=== PATIENT | female | born 1940 | race Caucasian/White ===

== ENCOUNTER 2020-08-06 12:07 | Emergency (ER) | payer MEDICARE ==
[2020-08-06 12:50] VITALS: BP 130/57
--- NOTE | 2020-08-06 14:17 | Event Note ---
ED Screening Note Date of service: 08/06/20 Time: 14:09 ED Screening Note: 79-year-old female patient with history of diabetes, hypertension, and end-stage renal disease on dialysis presents to the emergency department with complaints of progressively worsening right-sided headache for several months. Patient states she feels like "her scalp is burning." Patient attends dialysis Thursday/Thursday/Thursday. She did go to dialysis earlier today. No history of head trauma. General: Awake, appropriately interactive, no acute distress. ENT: Normal otoscopic exam. Neck: Supple. Full range of motion intact. Cardiovascular: Normal peripheral perfusion. Pulmonary: No respiratory distress. Patient is speaking normally without use of accessory muscles. Skin: No apparent rashes or lesions. Neurological: No facial asymmetry. Speech is clear. Follows commands. Patient is alert and oriented. Musculoskeletal: Moves all four extremities spontaneously with normal range of motion. Psych: Cooperative. Appropriate mood and affect. I have greeted and performed a focused rapid initial assessment of this patient. A comprehensive ED assessment and evaluation of the patient, analysis of all test results, and completion of the medical decision-making process will be conducted by additional ED providers. This initial assessment/diagnostic orders/clinical plan/treatment(s) is/are subject to change based on patients health status, clinical progression and re-assessment. Further treatment and workup at subsequent clinical provider's discretion. Patient/guardian urged not to elope from the ED as their condition may be serious if not clinically assessed and managed.
== END 2020-08-06 19:00 | disposition left against medical advice (07) ==
LOC: ED 12:07
DX: H92.01 Otalgia, right ear (principal); Z53.21 Procedure and treatment not carried out due to patient leaving prior to being seen by health care provider

== ENCOUNTER 2020-08-25 07:50 | Emergency (ER) | payer MEDICARE ==
--- NOTE | 2020-08-25 08:30 | Event Note ---
ED Screening Note Date of service: 08/25/20 Time: 08:29 ED Screening Note: This 79-year-old female with end-stage renal disease on dialysis 3 times a day last dialyzed yesterday presents to ED complaining of generalized body aches, coughing and bilateral leg pain times couple of days. This initial assessment/diagnostic orders/clinical plan/treatment(s) is/are subject to change based on patients health status, clinical progression and re- assessment by fellow clinical providers in the ED. Further treatment and workup at subsequent clinical providers discretion. Patient/guardian urged not to elope from the ED as their condition may be serious if not clinically assessed and managed. Initial orders include: Labs, chest x-ray.
--- NOTE | 2020-08-25 09:01 | XRay Report ---
CHEST 2 VIEWS INDICATION / CLINICAL INFORMATION: cough. COMPARISON: None available. FINDINGS: SUPPORT DEVICES: None. HEART / MEDIASTINUM: No significant abnormality. LUNGS / PLEURA: No significant pulmonary or pleural abnormality. No pneumothorax. ADDITIONAL FINDINGS: There are some likely venous vascular stents in the chest. IMPRESSION: 1. No acute findings. Signer Name: Gato Hardin MD Signed: 08/25/2020 8:56 AM Workstation Name: [id number]
[2020-08-25 09:52] VITALS: BP 124/78
[2020-08-25 10:05] LABS: Hematocrit 39.1 % (30.3-42.9); Hemoglobin 12.3 gm/dl (10.1-14.3); Mean Corpuscular HGB Conc 32 % (30-34); Mean Corpuscular Volume 88 fl (79-97); Platelet Count 165 K/mm3 (140-440); Red Blood Count 4.42 M/mm3 (3.65-5.03); Red Cell Distribution Width 17.3 % (13.2-15.2)
[2020-08-25 10:32] LABS: Albumin 3.6 g/dL (3.9-5); Calcium 9.3 mg/dL (8.4-10.2)
--- NOTE | 2020-08-25 11:07 | Emergency Department Report ---
ED General Adult HPI - General Chief complaint: Pain General Stated complaint: BODY PAIN Time Seen by Provider: 08/25/20 09:31 Source: patient Mode of arrival: Ambulatory Limitations: No Limitations - History of Present Illness Initial comments: Chief complaint: My whole body hurts. HPI: This is a 79-year-old female with history of hypertension, end-stage renal disease on hemodialysis for the past 15 years. She presents with diffuse body aches 2 days after receiving second dose of COVID-19 vaccine. She did not have any side effects with the first dose. She has chills cough body aches generalized fatigue. Last hemodialysis on yesterday. -: Gradual, days(s) (Past 3 days, 2 days after receiving COVID-19 vaccine) Location: head, neck, left, right, upper extremity, lower extremity Quality: aching Consistency: constant Improves with: medication (Tylenol) Worsens with: none Associated Symptoms: cough, fever/chills (Chills), malaise - Related Data Previous Rx's Medication Instructions Recorded Last Taken Type traMADoL [Ultram 50 MG tab] 50 mg PO Q6HR PRN #15 tablet 08/25/20 Unknown Rx Allergies Allergy/AdvReac Type Severity Reaction Status Date / Time No Known Allergies Allergy Unverified 08/25/20 08:02 ED Review of Systems ROS: Stated complaint: BODY PAIN Other details as noted in HPI Comment: All other systems reviewed and negative Constitutional: chills, malaise. denies: fever Respiratory: cough Gastrointestinal: denies: abdominal pain, nausea, vomiting Musculoskeletal: myalgia ED Past Medical Hx - Past Medical History Previous Medical History?: Yes Hx Hypertension: Yes Hx Renal Disease: Yes (Dialysis pt) - Surgical History Past Surgical History?: Yes Additional Surgical History: Hysterectomy - Social History Smoking Status: Never Smoker Substance Use Type: None - Medications Home Medications: Home Medications Medication Instructions Recorded Confirmed Last Taken Type traMADoL [Ultram 50 MG tab] 50 mg PO Q6HR PRN #15 tablet 08/25/20 Unknown Rx ED Physical Exam - General Limitations: No Limitations General appearance: alert, in no apparent distress, other (Appears well appears comfortable nontoxic-appearing) - Head Head exam: Present: atraumatic, normocephalic - Eye Eye exam: Present: normal appearance - ENT ENT exam: Present: mucous membranes moist - Neck Neck exam: Present: normal inspection, full ROM - Respiratory Respiratory exam: Present: normal lung sounds bilaterally. Absent: respiratory distress, wheezes, rales, rhonchi - Cardiovascular Cardiovascular Exam: Present: regular rate, normal rhythm, normal heart sounds. Absent: systolic murmur, diastolic murmur, rubs, gallop - GI/Abdominal GI/Abdominal exam: Present: soft, normal bowel sounds. Absent: distended, tenderness, guarding, rebound - Extremities Exam Extremities exam: Present: normal inspection - Neurological Exam Neurological exam: Present: alert, oriented X3 - Psychiatric Psychiatric exam: Present: normal affect, normal mood - Skin Skin exam: Present: warm, dry, intact, normal color. Absent: rash ED Course Vital Signs 08/25/20 08/25/20 07:57 09:49 Temperature 98.5 F Pulse Rate 98 H 88 Respiratory 12 18 Rate Blood Pressure 125/62 Blood Pressure 124/78 [Left] O2 Sat by Pulse 97 98 Oximetry ED Medical Decision Making - Lab Data Result diagrams: 08/25/20 09:15 08/25/20 09:15 Laboratory Results - last 24 hr 08/25/20 08/25/20 09:15 09:15 WBC 5.5 RBC 4.42 Hgb 12.3 Hct 39.1 MCV 88 MCH 28 MCHC 32 RDW 17.3 H Plt Count 165 [place] % (Auto) Grocery Clerk Stocking Sodium 143 Potassium 4.4 Chloride 100.7 Carbon Dioxide 30 Anion Gap 17 BUN 34 H Creatinine 6.7 H Estimated GFR 7 BUN/Creatinine Ratio 5 Glucose 81 Calcium 9.3 Total Bilirubin 0.30 AST 23 ALT 17 Alkaline Phosphatase 182 H Total Protein 7.3 Albumin 3.6 L Albumin/Globulin Ratio 1.0 - Radiology Data Radiology results: report reviewed Chest radiograph: No acute findings according to radiology report - Medical Decision Making Clinical impression: Adverse effects of COVID-19 vaccine, secondary consideration COVID-19 infection in spite COVID-19 vaccine, no evidence of s epsis. CBC chemistry unremarkable. Chemistry reflects end-stage renal disease with normal potassium no acidosis. Vital signs are normal. Patient appears well. I prescribed tramadol. Recommended increase rest and hydration as well as continue Tylenol with chest helped her symptoms. She recently moved from [place] to be closer to her granddaughter who lives in [facility]. I have referred her to our outpatient medicine physician for follow-up as needed. Critical care attestation.: If time is entered above; I have spent that time in minutes in the direct care of this critically ill patient, excluding procedure time. ED Disposition Clinical Impression: Adverse effect of COVID-19 vaccine Disposition: TO HOME OR SELFCARE Is pt being admited?: No Does the pt Need Aspirin: No Condition: Stable Additional Instructions: Please return to the ER if your symptoms worsen. Otherwise, rest and hydrate. Continue Tylenol use. Prescriptions: traMADoL [Ultram 50 MG tab] 50 mg PO Q6HR PRN #15 tablet PRN Reason: Pain Referrals: OLIVERIO CARUSO [Primary Care Provider] - 3-5 Days ANNEMARIE PERRY MD [Staff Physician] - 3-5 Days
[2020-08-25 12:07] LABS: Platelet Estimate Consistent w Auto; RBC Morphology Normal; Total Cells Counted 100
== END 2020-08-25 11:30 | disposition home or self-care (01) ==
LOC: ED 07:50
DX: R53.81 Other malaise (principal); T50.B95A Adverse effect of other viral vaccines, initial encounter; I10 Essential (primary) hypertension; Z90.710 Acquired absence of both cervix and uterus; Z79.899 Other long term (current) drug therapy; Y92.89 Other specified places as the place of occurrence of the external cause
CPT/HCPCS: 36415; 71046; 80053; 85007; 85025

== ENCOUNTER 2020-11-23 21:11 | Inpatient (IN) | payer MEDICARE ==
[2020-11-23] MEDS ORDERED: SODIUM CHLORIDE 0.9% 500 ML 500 ML IV ONE (21:33)
[2020-11-23] MEDS ORDERED: ACETAMINOPHEN 500 MG TAB PO STA (21:33)
--- NOTE | 2020-11-23 22:01 | XRay Report ---
CHEST 1 VIEW 11/23/2020 8:53 PM INDICATION / CLINICAL INFORMATION: possible Sepsis. COMPARISON: 08/25/2020. FINDINGS: SUPPORT DEVICES: None. HEART / MEDIASTINUM: No significant abnormality. LUNGS / PLEURA: Dense infiltrate right upper lobe. No pneumothorax. ADDITIONAL FINDINGS: No significant additional findings. IMPRESSION: Right upper lobe pneumonia. Recommend follow-up to resolution. Signer Name: Stephan Ortega MD Signed: 11/23/2020 9:57 PM Workstation Name: [id number]
[2020-11-23 22:16] LABS: Albumin 3.8 g/dL (3.9-5); Calcium 9.6 mg/dL (8.4-10.2)
[2020-11-23 23:04] LABS: Hematocrit 33.1 % (30.3-42.9); Hemoglobin 10.7 gm/dl (10.1-14.3); Mean Corpuscular HGB Conc 32 % (30-34); Mean Corpuscular Volume 90 fl (79-97); Platelet Count 155 K/mm3 (140-440); Red Blood Count 3.68 M/mm3 (3.65-5.03)
[2020-11-23 23:14] LABS: INR 1.23 (0.87-1.13)
[2020-11-24 05:32] LABS: Total Cells Counted 100
[2020-11-24 05:33] LABS: Anisocytosis 1+; Platelet Estimate Consistent w Auto
--- NOTE | 2020-11-24 09:00 | Emergency Department Report ---
ED Fever HPI - General Chief Complaint: Fever Stated Complaint: FALL/ RIGHT ARM PAIN PUI?: Yes Time Seen by Provider: 11/24/20 08:30 Source: patient Exam Limitations: no limitations - History of Present Illness Initial Comments: CC: "I've been sick, coughing up mucus." HPI: This is a 79 yo female with hx of ESRD on HD MWF, hypertension who presents with fever cough brown-yellow mucus production. Patient also fell today. She fell in the kitchen yesterday morning. She explained that she was "twisted up". Patient had right arm pain due to the fall which has resolved. She has had falls on previous occasion. She has fever, chills, sore throat, headache, poor appetite diarrhea. She received 2 doses of the Covid vaccine in June and July. Patient denies dysuria. She does not make urine due to end- stage renal disease. She is followed at [facility]. Last HD session occurred on Thursday. She can not recall the name of her cook's assistant. I spoke with daughter per phone . Patient normally drives herself to dialysis. Daughter was concerned that patient did not take herself to dialysis yesterday. Patient appeared weak with poor appetite. Patient needed help just to walk just a short distance. Daughter called EMS. Daughter then took patient to urgent care center who referred her to the emergency department. Patient receives hemodialysis at [facility] Timing/Duration: yesterday Fever Severity/Quality: subjective Fever Therapy COPY CENTER ASSOCIATE: none Associated Symptoms: cough, sore throat ED Review of Systems ROS: Stated complaint: FALL/ RIGHT ARM PAIN Other details as noted in HPI Comment: All other systems reviewed and negative Constitutional: chills, fever, malaise ENT: throat pain Respiratory: cough, shortness of breath, wheezing Cardiovascular: denies: chest pain Gastrointestinal: diarrhea. denies: abdominal pain, vomiting Neurological: headache ED Past Medical Hx - Past Medical History Previous Medical History?: Yes Hx Hypertension: Yes Hx Renal Disease: Yes (Dialysis pt) - Surgical History Past Surgical History?: Yes Additional Surgical History: Hysterectomy - Social History Smoking Status: Never Smoker Substance Use Type: Alcohol - Medications Home Medications: Home Medications Medication Instructions Recorded Confirmed Last Taken Type traMADoL [Ultram 50 MG tab] 50 mg PO Q6HR PRN #15 tablet 08/25/20 Unknown Rx ED Physical Exam - General Limitations: No Limitations General appearance: alert, in no apparent distress, other (Appears ill, drooling, brown mucus on her clothes) - Head Head exam: Present: atraumatic, normocephalic - Eye Eye exam: Present: normal appearance - ENT ENT exam: Present: mucous membranes moist - Neck Neck exam: Present: normal inspection, full ROM - Respiratory Respiratory exam: Present: rales, decreased breath sounds, other (Mild work of breathing). Absent: normal lung sounds bilaterally, stridor, accessory muscle use - Cardiovascular Cardiovascular Exam: Present: normal rhythm, tachycardia, normal heart sounds. Absent: systolic murmur, diastolic murmur, rubs, gallop - GI/Abdominal GI/Abdominal exam: Present: soft. Absent: distended, tenderness, guarding, rebound - Expanded Upper Extremity Exam Right Shoulder Exam: Present: normal inspection, full ROM. Absent: tenderness, swelling Upper Arm exam: Present: normal inspection, full ROM, other (Right bicep AV fist shauna positive thrill positive bruit) Elbow exam: Present: normal inspection, full ROM Forearm Wrist exam: Present: normal inspection, full ROM Hand Wrist exam: Present: normal inspection, full ROM - Neurological Exam Neurological exam: Present: alert, oriented X3 - Psychiatric Psychiatric exam: Present: normal affect, normal mood - Skin Skin exam: Present: warm, dry, intact, normal color. Absent: rash ED Course Vital Signs 11/23/20 11/24/20 11/24/20 21:22 07:23 08:31 Temperature 103.1 F H 100.0 F H Pulse Rate 121 H 111 H Respiratory 16 24 20 Rate Blood Pressure 127/54 134/54 O2 Sat by Pulse 93 93 100 Oximetry ED Medical Decision Making - Lab Data Result diagrams: 11/23/20 21:40 11/23/20 21:40 Laboratory Results - last 24 hr 11/23/20 11/23/20 11/23/20 21:40 21:40 21:40 WBC 11.1 H RBC 3.68 Hgb 10.7 Hct 33.1 MCV 90 MCH 29 MCHC 32 RDW 18.0 H Plt Count 155 [place] % (Auto) Tool Planer Set Up Operator Add Manual Diff Complete Total Counted 100 Seg Neuts % (Manual) 84.0 H Lymphocytes % (Manual) 7.0 L Monocytes % (Manual) 9.0 H Nucleated RBC % Not Reportable Seg Neutrophils # Man 9.3 H Band Neutrophils # 0.0 Lymphocytes # (Manual) 0.8 L Abs React Lymphs (Man) 0.0 Monocytes # (Manual) 1.0 H Eosinophils # (Manual) 0.0 Basophils # (Manual) 0.0 Metamyelocytes # 0.0 Myelocytes # 0.0 Promyelocytes # 0.0 Blast Cells # 0.0 WBC Morphology Not Reportable Hypersegmented Neuts Not Reportable Hyposegmented Neuts Not Reportable Hypogranular Neuts Not Reportable Smudge Cells Not Reportable Toxic Granulation Not Reportable Toxic Vacuolation Not Reportable Dohle Bodies Not Reportable Pelger-Huet Anomaly Not Reportable Martín Rods Not Reportable Platelet Estimate Consistent w auto Clumped Platelets Not Reportable Plt Clumps, EDTA Not Reportable Large Platelets Not Reportable Giant Platelets Not Reportable Platelet Satelliting Not Reportable Plt Morphology Comment Not Reportable RBC Morphology Not Reportable Dimorphic RBCs Not Reportable Polychromasia Not Reportable Hypochromasia Not Reportable Poikilocytosis Not Reportable Anisocytosis 1+ Microcytosis Not Reportable Macrocytosis Not Reportable Spherocytes Not Reportable Pappenheimer Bodies Not Reportable Sickle Cells Not Reportable Target Cells Not Reportable Tear Drop Cells Not Reportable Ovalocytes Not Reportable Helmet Cells Not Reportable [place] [facility] Bodies Not Reportable [place] Rings Not Reportable Cosmo Cells Not Reportable Bite Cells Not Reportable Crenated Cell Not Reportable Elliptocytes Not Reportable Acanthocytes (Spur) Not Reportable Rouleaux Not Reportable Hemoglobin C Crystals Not Reportable Schistocytes Not Reportable Malaria parasites Not Reportable Carlton Bodies Not Reportable Hem Pathologist Commnt No PT 16.0 H INR 1.23 H VBG pH Sodium 133 L Potassium 4.4 Chloride 90.3 L Carbon Dioxide 29 Anion Gap 18 BUN 55 H Creatinine 10.3 H Estimated GFR 4 BUN/Creatinine Ratio 5 Glucose 203 H Lactic Acid Calcium 9.6 Total Bilirubin 0.80 AST 33 ALT 14 Alkaline Phosphatase 132 H Total Protein 6.7 Albumin 3.8 L Albumin/Globulin Ratio 1.3 11/23/20 11/23/20 11/24/20 21:40 21:40 01:01 WBC RBC Hgb Hct MCV MCH MCHC RDW Plt Count [place] % (Auto) Add Manual Diff Total Counted Seg Neuts % (Manual) Lymphocytes % (Manual) Monocytes % (Manual) Nucleated RBC % Seg Neutrophils # Man Band Neutrophils # Lymphocytes # (Manual) Abs React Lymphs (Man) Monocytes # (Manual) Eosinophils # (Manual) Basophils # (Manual) Metamyelocytes # Myelocytes # Promyelocytes # Blast Cells # WBC Morphology Hypersegmented Neuts Hyposegmented Neuts Hypogranular Neuts Smudge Cells Toxic Granulation Toxic Vacuolation Dohle Bodies Pelger-Huet Anomaly Martín Rods Platelet Estimate Clumped Platelets Plt Clumps, EDTA Large Platelets Giant Platelets Platelet Satelliting Plt Morphology Comment RBC Morphology Dimorphic RBCs Polychromasia Hypochromasia Poikilocytosis Anisocytosis Microcytosis Macrocytosis Spherocytes Pappenheimer Bodies Sickle Cells Target Cells Tear Drop Cells Ovalocytes Helmet Cells [place] [facility] Bodies [place] Rings Cosmo Cells Bite Cells Crenated Cell Elliptocytes Acanthocytes (Spur) Rouleaux Hemoglobin C Crystals Schistocytes Malaria parasites Carlton Bodies Hem Pathologist Commnt PT INR VBG pH 7.474 H Sodium Potassium Chloride Carbon Dioxide Anion Gap BUN Creatinine Estimated GFR BUN/Creatinine Ratio Glucose Lactic Acid 1.80 1.70 Calcium Total Bilirubin AST ALT Alkaline Phosphatase Total Protein Albumin Albumin/Globulin Ratio - Radiology Data Radiology results: report reviewed [facility] [address] [place] [address] XRay Report Signed Patient: AUGUSTIN GRIFFIN MR#: [id number] 9 : 1940 Acct:[id number] Age/Sex: 79 / F ADM Date: 11/23/20 Loc: ED Attending Dr: Ordering Physician: FRANCISCO JAVIER MARLEY MD Date of Service: 11/23/20 Procedure(s): XR chest 1V ap Accession Number(s): [id number] cc: FRANCISCO JAVIER MARLEY MD Fluoro Time In Minutes: CHEST 1 VIEW 11/23/2020 8:53 PM INDICATION / CLINICAL INFORMATION: possible Sepsis. COMPARISON: 08/25/2020. FINDINGS: SUPPORT DEVICES: None. HEART / MEDIASTINUM: No significant abnormality. LUNGS / PLEURA: Dense infiltrate right upper lobe. No pneumothorax. ADDITIONAL FINDINGS: No significant additional findings. IMPRESSION: Right upper lobe pneumonia. Recommend follow-up to resolution. Signer Name: Stephan Ortega MD Signed: 11/23/2020 9:57 PM Workstation Name: [id number] Transcribed By: ES Dictated By: Stephan Ortega MD Electronically Authenticated By: Stephan Ortega MD Signed Date/Time: 11/23/202156 DD/ 55 TD/TT: - Medical Decision Making 1. acute respiratory failure hypoxia due to healthcare associated pneumonia. Patient has large right upper lobe infiltrate. I personally observed patient off oxygen for 10 minutes at rest. Oxygen saturation decreased to 89%. Oxygen saturation appropriate level with nasal cannula. Patient received IV cefepime and IV vancomycin. Considering lobar infiltrate with leukocytosis and vaccinated patient, bacterial pneumonia most likely however will rule out Covid. Will institute Covid precautions in the interim. 2. End-stage renal disease on hemodialysis Thursday: Patient does not require emergent hemodialysis. Clinic does not open until 10 AM. I will have ER design quality engineer contact clinic at that time to discover the name of patient's new cook's assistant. Daughter and patient did not know the name of nephr ologist. Patient is admitted to the hospital service for further treatment and evaluation. Lab review: Leukocytosis with left shift. Normal potassium. No indication of metabolic acidosis. Critical care attestation.: If time is entered above; I have spent that time in minutes in the direct care of this critically ill patient, excluding procedure time. ED Disposition Clinical Impression: Acute respiratory failure with hypoxia, Healthcare-associated pneumonia, Status post administration of all doses of COVID-19 vaccine series, End-stage renal disease on hemodialysis Disposition: OP ADMIT IP TO THIS HOSP Is pt being admited?: Yes Does the pt Need Aspirin: No Condition: Fair Instructions: Bacterial Pneumonia (ED) Referrals: PRIMARY CARE, [Primary Care Provider] - 3-5 Days
--- NOTE | 2020-11-24 09:28 | History and Physical Report ---
History of Present Illness Date of examination: 11/24/20 Date of admission: 11/24/2020 Chief complaint: Fever, cough and worsening shortness of breath History of present illness: 79 yo female patient with hx of ESRD on HD MWF, hypertension presents to the emergency room with fever cough brown-yellow mucus production. Patient also gives history of recurrent falls , She has fever, chills, sore throat, headache, poor appetite diarrhea. She received 2 doses of the Covid vaccine in June and July. , Patient missed her dialysis yesterday as she was not feeling well. Initial work-up in the emergency room is consistent with, right upper lobe pneumonia on chest x-ray, mild leukocytosis, mild hyponatremia probably secondary to fluid overload. Though the patient was vaccinated, in view of fever pneumonia and cough, high suspicion for COVID-19, nagel PCR was sent. Patient feels slightly better this morning. Denies headache dizziness , however complains of generalized weakness Denies nausea vomiting or abdominal pain Denies chest pain or palpitation Past History Past Medical History: dialysis, ESRD, hypertension Past Surgical History: Other (AV graft) Social history: denies: smoking, alcohol abuse, prescription drug abuse Family history: hypertension Medications and Allergies Allergies Allergy/AdvReac Type Severity Reaction Status Date / Time No Known Allergies Allergy Unverified 08/25/20 08:02 Home Medications Medication Instructions Recorded Confirmed Last Taken Type traMADoL [Ultram 50 MG tab] 50 mg PO Q6HR PRN #15 tablet 08/25/20 Unknown Rx Review of Systems Constitutional: fever, chills, weakness, no weight loss, no weight gain Ears, nose, mouth and throat: no nasal congestion, no nasal discharge Cardiovascular: shortness of breath, dyspnea on exertion, no chest pain, no orthopnea, no palpitations Respiratory: cough with sputum, shortness of breath, dyspnea on exertion Gastrointestinal: diarrhea, no abdominal pain, no nausea, no vomiting Genitourinary Female: no flank pain, no dysuria Musculoskeletal: no myalgias, no arthritis Integumentary: no rash, no lesions Neurological: weakness, other Psychiatric: no anxiety, no depression Endocrine: no cold intolerance, no heat intolerance Hematologic/Lymphatic: no easy bruising, no easy bleeding Allergic/Immunologic: no urticaria, no allergic rhinitis Exam - Constitutional Vitals: Temp Pulse Resp BP Pulse Ox 100.0 F H 111 H 20 134/54 100 11/24/20 07:23 11/24/20 07:23 11/24/20 08:31 11/24/20 07:23 11/24/20 08:31 General appearance: Present: mild distress, obese - EENT Eyes: Present: PERRL, EOM intact - Neck Neck: Present: supple, normal ROM - Respiratory Respiratory effort: normal Respiratory: right: rhonchi, bilateral: diminished, rales, negative: wheezing - Cardiovascular Rhythm: regular Heart Sounds: Present: S1 & S2 - Extremities Extremities: no ischemia, No edema Extremity abnormal: edema - Abdominal General gastrointestinal: Present: soft, non-tender, non-distended, normal bowel sounds - Integumentary Integumentary: Present: clear, warm - Musculoskeletal Musculoskeletal: strength equal bilaterally, generalized weakness - Psychiatric Psychiatric: appropriate mood/affect, other (confused at times) - Neurologic Neurologic: moves all extremities Results - Labs CBC & Chem 7: 11/23/20 21:40 11/23/20 21:40 Labs: Abnormal lab results 11/23/20 11/23/20 11/23/20 Range/Units 21:40 21:40 21:40 WBC 11.1 H (4.5-11.0) K/mm3 RDW 18.0 H (13.2-15.2) % Seg Neuts % (Manual) 84.0 H (40.0-70.0) % Lymphocytes % (Manual) 7.0 L (13.4-35.0) % Monocytes % (Manual) 9.0 H (0.0-7.3) % Seg Neutrophils # Man 9.3 H (1.8-7.7) K/mm3 Lymphocytes # (Manual) 0.8 L (1.2-5.4) K/mm3 Monocytes # (Manual) 1.0 H (0.0-0.8) K/mm3 PT 16.0 H (12.2-14.9) Sec. INR 1.23 H (0.87-1.13) VBG pH (7.320-7.420) Sodium 133 L (137-145) mmol/L Chloride 90.3 L (98-107) mmol/L BUN 55 H (7-17) mg/dL Creatinine 10.3 H (0.6-1.2) mg/dL Glucose 203 H (65-100) mg/dL Alkaline Phosphatase 132 H (35-129) units/L Albumin 3.8 L (3.9-5) g/dL 11/23/20 Range/Units 21:40 WBC (4.5-11.0) K/mm3 RDW (13.2-15.2) % Seg Neuts % (Manual) (40.0-70.0) % Lymphocytes % (Manual) (13.4-35.0) % Monocytes % (Manual) (0.0-7.3) % Seg Neutrophils # Man (1.8-7.7) K/mm3 Lymphocytes # (Manual) (1.2-5.4) K/mm3 Monocytes # (Manual) (0.0-0.8) K/mm3 PT (12.2-14.9) Sec. INR (0.87-1.13) VBG pH 7.474 H (7.320-7.420) Sodium (137-145) mmol/L Chloride (98-107) mmol/L BUN (7-17) mg/dL Creatinine (0.6-1.2) mg/dL Glucose (65-100) mg/dL Alkaline Phosphatase (35-129) units/L Albumin (3.9-5) g/dL Assessment and Plan -- Febrile illness; Current Visit: Yes Status: Acute Multifactorial, due to pneumonia, PUI Possible Covid, patient already vaccinated Antipyretics, blood cultures Supportive care --PUI/high suspicion for Covid Current Visit: Yes Status: Acute Droplet and contact isolation Nagel PCR test, supportive care Oxygen evaluation --Right upper lobe pneumonia/community-acquired Current Visit: Yes Status: Acute Empiric antibiotics, Rocephin and Zithromax Blood cultures, sputum cultures Supportive care Consider aspiration pneumonia --end-stage renal disease on HD Current Visit: Yes Status: Chronic Nephrology consulted Hemodialysis per schedule --Mild hyponatremia; Current Visit: Yes Status: Acute probably secondary to fluid overload Hemodialysis per schedule --obesity; BMI 36.6 Current Visit: Yes Status: Acute Patient needs weight reduction --DVT prophylaxis Current Visit: Yes Status: Acute Heparin renal dose --Full CODE STATUS We will closely monitor the patient and adjust management as needed Plan of care reviewed with the patient and her nurse Follow nephrology consultation and recommendations I spent total 55 minutes coordinating this discharge
[2020-11-24] MEDS: cefTRIAXone/NS 2 GM/100 ML 2 GM/100 ML BAG IV SCH (11:15)
[2020-11-24] MEDS ORDERED: SODIUM CHLORIDE 0.9% 100 ML IV PRN (11:40)
--- NOTE | 2020-11-24 11:42 | Consultation ---
History of Present Illness - Reason for Consult end stage renal disease Requesting physician: MICHAEL ANDERSON - History of Present Illness This is a 79 yo F with past medical history of Hypertension, ESRD on HD MWF, who presents with fever, SOB, LUCERO, productive cough. Pt also reports multiple falls over the lat 2 days. Pt denies loss of consciousness, reports the falls were mechanical in nature. She received 2 doses of the Covid vaccine in June and July. CXR showed evidence of RUL pneumonia. Pt reports that her last HD was performed on Thu. Could not go to her maintenance HD yesterday. Renal consult is requested for management of ESRD/HD. Past History Past Medical History: dialysis, ESRD, hypertension Medications and Allergies Allergies Allergy/AdvReac Type Severity Reaction Status Date / Time No Known Allergies Allergy Unverified 08/25/20 08:02 Home Medications Medication Instructions Recorded Confirmed Last Taken Type traMADoL [Ultram 50 MG tab] 50 mg PO Q6HR PRN #15 tablet 08/25/20 Unknown Rx Active Meds: Active Medications Ceftriaxone Sodium (Rocephin/Ns 2 Gm/100 Ml) 2 gm in 100 mls @ 200 mls/hr IV Q24H [facility]; Protocol Last Admin: 11/24/20 11:15 Dose: 200 mls/hr Documented by: Sodium Chloride (Nacl 0.9%) 100 mls @ 999 mls/hr IV FRANK PRN PRN Reason: Hypotension Review of Systems All systems: negative Exam - Vital Signs Vital signs: Vital Signs Temp Pulse Resp BP Pulse Ox 103.1 F H 121 H 16 127/54 93 11/23/20 21:22 11/23/20 21:22 11/23/20 21:22 11/23/20 21:22 11/23/20 21:22 Results - Lab Results 11/23/20 21:40 11/23/20 21:40 Most recent lab results Calcium 9.6 mg/dL (8.4-10.2) 11/23/20 21:40 Assessment and Plan - Patient Problems (1) End-stage renal disease on hemodialysis Current Visit: Yes Status: Acute Plan to address problem: HD arranged for today with target UF at 1-2L as tolerated. Pt understands risks and benefit of maintenance HD, consented to HD. Will resume HD on MWF schedule (2) Community acquired pneumonia Current Visit: Yes Status: Acute Plan to address problem: cont ABX treatment cetriaxone (3) Hypertensive chronic kidney disease with stage 5 chronic kidney disease or end stage renal disease Current Visit: Yes Status: Acute Plan to address problem: monitor BP off meds (4) Anemia in chronic illness Current Visit: Yes Status: Acute Plan to address problem: Hb at target. no further EPO needed.
[2020-11-24 13:05] LABS: Hepatitis C Virus Antibody Non-Reactive (NonReactive)
[2020-11-24 13:13] LABS: Hepatitis B Surface Antigen Nonreactive (Negative)
[2020-11-24] MEDS ORDERED: ACETAMINOPHEN 325 MG TAB PO PRN (18:04)
[2020-11-24] MEDS ORDERED: traMADol 50 MG TAB PO PRN (19:10)
--- NOTE | 2020-11-24 19:25 | Event Note ---
Date: 11/24/20 Magdaleno PCR test is negative DC isolation
[2020-11-24] MEDS: AZITHROMYCIN/NS 500 MG/250 ML 500 MG/250 ML BAG IV SCH (21:56)
[2020-11-24] MEDS ORDERED: LACTULOSE 20 GM/30 ML ORAL LIQD PO ONE (23:38)
[2020-11-25 06:18] LABS: Hemoglobin 9.9 gm/dl (10.1-14.3); Mean Corpuscular HGB Conc 33 % (30-34); Mean Corpuscular Volume 89 fl (79-97); Platelet Count 147 K/mm3 (140-440); Red Blood Count 3.39 M/mm3 (3.65-5.03)
[2020-11-25 06:43] LABS: Calcium 9.4 mg/dL (8.4-10.2)
--- NOTE | 2020-11-25 09:59 | Progress Note ---
Assessment and Plan - Patient Problems (1) End-stage renal disease on hemodialysis Current Visit: Yes Status: Acute Plan to address problem: Cont HD on MWF schedule (2) Community acquired pneumonia Current Visit: Yes Status: Acute Plan to address problem: cont ABX treatment cetriaxone (3) Hypertensive chronic kidney disease with stage 5 chronic kidney disease or end stage renal disease Current Visit: Yes Status: Acute Plan to address problem: monitor BP off meds (4) Anemia in chronic illness Current Visit: Yes Status: Acute Plan to address problem: Hb at target. no further EPO needed. Subjective Date of service: 11/25/20 Principal diagnosis: ESRD Interval history: Pt awake, alert, in no acute distress Objective - Vital Signs Vital signs: Vital Signs - 12hr 11/24/20 11/25/20 11/25/20 22:01 00:23 00:57 Temperature 98 F Pulse Rate 119 H 104 H Respiratory 23 23 Rate Blood Pressure 112/59 110/51 O2 Sat by Pulse 99 100 Oximetry 11/25/20 11/25/20 11/25/20 01:00 01:30 02:00 Temperature Pulse Rate 98 H 97 H 93 H Respiratory 22 23 22 Rate Blood Pressure 93/47 117/55 120/47 O2 Sat by Pulse 99 99 100 Oximetry 11/25/20 11/25/20 11/25/20 02:30 03:00 03:30 Temperature Pulse Rate 97 H 92 H 92 H Respiratory 22 22 20 Rate Blood Pressure 113/46 113/49 98/46 O2 Sat by Pulse 99 100 99 Oximetry 11/25/20 11/25/20 11/25/20 04:00 05:00 05:30 Temperature Pulse Rate 95 H 101 H 93 H Respiratory 22 18 15 Rate Blood Pressure 94/46 134/50 150/63 O2 Sat by Pulse 98 97 100 Oximetry 11/25/20 11/25/20 06:00 06:30 Temperature Pulse Rate 89 92 H Respiratory 15 16 Rate Blood Pressure 135/68 149/61 O2 Sat by Pulse 99 93 Oximetry - General Appearance General appearance: well-developed, well-nourished, appears stated age EENT: ATNC, PERRL, mucous membranes moist Neck: no JVD Respiratory: Present: Clear to Ascultation Cardiology: regular, S1S2 Gastrointestinal: normoactive bowel sounds Integumentary: no rash, other (no edema ) Neurologic: no focal deficit, alert and oriented x3, strength 5/5, CN 3-12 intact Psychiatric: mood/affect appropriate, cooperative - Lab 11/25/20 05:33 11/25/20 05:33 Most recent lab results Calcium 9.4 mg/dL (8.4-10.2) 11/25/20 05:33 Medications & Allergies - Medications Allergies/Adverse Reactions: Allergies No Known Allergies Allergy (Unverified 08/25/20 08:02) Home Medications: Home Medications Medication Instructions Recorded Confirmed Last Taken Type traMADoL [Ultram 50 MG tab] 50 mg PO Q6HR PRN #15 tablet 08/25/20 Unknown Rx Active Medications: Generic Name Dose Route Start Last Admin Trade Name Freq PRN Reason Stop Dose Admin Acetaminophen 650 mg 11/24/20 18:04 11/24/20 21:55 Acetaminophen 325 Mg Tab PO 650 mg Q6H PRN Administration Pain, Mild (1-3) Famotidine 20 mg 11/25/20 10:00 Famotidine 20 Mg Tab PO QDAY ZOE Ceftriaxone Sodium 2 gm in 100 mls @ 200 mls/hr 11/24/20 10:00 11/24/20 11:15 Rocephin/Ns 2 Gm/100 Ml IV 11/28/20 11:59 200 mls/hr Q24H ZOE Administration Protocol Sodium Chloride 100 mls @ 999 mls/hr 11/24/20 11:40 Nacl 0.9% IV FRANK PRN Hypotension Azithromycin 500 mg in 250 mls @ 250 mls/hr 11/24/20 20:00 11/24/20 21:56 Zithromax/Ns IV 11/28/20 10:59 250 mls/hr Q24HR ZOE Administration Tramadol HCl 50 mg 11/24/20 19:10 Tramadol 50 Mg Tab PO Q6H PRN Pain, Moderate (4-6)
[2020-11-25] MEDS: FAMOTIDINE 20 MG TAB PO SCH (10:39)
[2020-11-25] MEDS: AZITHROMYCIN/NS 500 MG/250 ML 500 MG/250 ML BAG IV SCH (10:39)
[2020-11-25] MEDS: cefTRIAXone/NS 2 GM/100 ML 2 GM/100 ML BAG IV SCH (10:40)
[2020-11-25 10:51] LABS: Total Cells Counted 100
[2020-11-25 10:52] LABS: Anisocytosis 1+; Platelet Estimate Consistent w Auto
--- NOTE | 2020-11-25 11:29 | Progress Note ---
Assessment and Plan Assessment and plan: --COVID-19 test is negative -- Febrile illness; Current Visit: Yes Status: Acute Multifactorial, due to pneumonia, PUI Possible Covid, patient already vaccinated Antipyretics, blood cultures Supportive care --Right upper lobe pneumonia/community-acquired Current Visit: Yes Status: Acute Empiric antibiotics, Rocephin and Zithromax Blood cultures, sputum cultures Supportive care Consider aspiration pneumonia --end-stage renal disease on HD Current Visit: Yes Status: Chronic Nephrology consulted Hemodialysis per schedule --Mild hyponatremia; Current Visit: Yes Status: Acute probably secondary to fluid overload Hemodialysis per schedule --obesity; BMI 36.6 Current Visit: Yes Status: Acute Patient needs weight reduction --DVT prophylaxis Current Visit: Yes Status: Acute Heparin renal dose --Full CODE STATUS We will closely monitor the patient and adjust management as needed Plan of care reviewed with the patient and her nurse Follow nephrology consultation and recommendations Closely monitor the patient and adjust management as needed Brief history; 79-year-old obese female patient with significant past medical history of hypertension end-stage renal disease on hemodialysis was admitted through emergency room with fever cough and initial work-up is consistent with right upper lobe pneumonia and fluid overload, patient was received stat hemodialysis with significant improvement, started on empiric antibiotics Rocephin and Zithromax, with mild improvement of symptoms, COVID-19 test is negative 11/25/2020; COVID-19 test is negative Patient received hemodialysis yesterday with significant improvement of symptoms Receiving antibiotics for right-sided pneumonia We will get follow-up chest x-ray tomorrow morning History Interval history: I have seen and examined the patient this morning in ER awaiting bed assignment. Patient feels slightly better after her dialysis Denies any chest pain or shortness of breath COVID-19 test is negative Vital signs noted Hospitalist Physical - Constitutional Vitals: Temp Pulse Resp BP Pulse Ox 98 F 92 H 16 149/61 93 11/25/20 00:57 11/25/20 06:30 11/25/20 06:30 11/25/20 06:30 11/25/20 06:30 General appearance: Present: no acute distress, well-nourished, obese - EENT Eyes: Present: PERRL, EOM intact - Neck Neck: Present: supple, normal ROM - Respiratory Respiratory effort: normal Respiratory: right: rhonchi, bilateral: diminished, rales, negative: wheezing - Cardiovascular Rhythm: regular Heart Sounds: Present: S1 & S2 - Extremities Extremities: no ischemia, No edema - Abdominal General gastrointestinal: soft, non-tender, non-distended, normal bowel sounds - Integumentary Integumentary: Present: clear, warm - Psychiatric Psychiatric: appropriate mood/affect, cooperative - Neurologic Neurologic: CNII-XII intact, moves all extremities Results - Labs CBC & Chem 7: 11/25/20 05:33 11/25/20 05:33 Labs: Laboratory Last Values WBC 9.9 K/mm3 (4.5-11.0) 11/25/20 05:33 RBC 3.39 M/mm3 (3.65-5.03) L 11/25/20 05:33 Hgb 9.9 gm/dl (10.1-14.3) L 11/25/20 05:33 Hct 30.0 % (30.3-42.9) L 11/25/20 05:33 MCV 89 fl (79-97) 11/25/20 05:33 MCH 29 pg (28-32) 11/25/20 05:33 MCHC 33 % (30-34) 11/25/20 05:33 RDW 18.0 % (13.2-15.2) H 11/25/20 05:33 Plt Count 147 K/mm3 (140-440) 11/25/20 05:33 [place] % (Auto) Poultry Slaughterer 11/25/20 05:33 Add Manual Diff Complete 11/25/20 05:33 Total Counted 100 11/25/20 05:33 Seg Neuts % (Manual) 80.0 % (40.0-70.0) H 11/25/20 05:33 Lymphocytes % (Manual) 11.0 % (13.4-35.0) L 11/25/20 05:33 Monocytes % (Manual) 9.0 % (0.0-7.3) H 11/25/20 05:33 Nucleated RBC % Not Reportable 11/25/20 05:33 Seg Neutrophils # Man 7.9 K/mm3 (1.8-7.7) H 11/25/20 05:33 Band Neutrophils # 0.0 K/mm3 11/25/20 05:33 Lymphocytes # (Manual) 1.1 K/mm3 (1.2-5.4) L 11/25/20 05:33 Abs React Lymphs (Man) 0.0 K/mm3 11/25/20 05:33 Monocytes # (Manual) 0.9 K/mm3 (0.0-0.8) H 11/25/20 05:33 Eosinophils # (Manual) 0.0 K/mm3 (0.0-0.4) 11/25/20 05:33 Basophils # (Manual) 0.0 K/mm3 (0.0-0.1) 11/25/20 05:33 Metamyelocytes # 0.0 K/mm3 11/25/20 05:33 Myelocytes # 0.0 K/mm3 11/25/20 05:33 Promyelocytes # 0.0 K/mm3 11/25/20 05:33 Blast Cells # 0.0 K/mm3 11/25/20 05:33 WBC Morphology Not Reportable 11/25/20 05:33 Hypersegmented Neuts Not Reportable 11/25/20 05:33 Hyposegmented Neuts Not Reportable 11/25/20 05:33 Hypogranular Neuts Not Reportable 11/25/20 05:33 Smudge Cells Not Reportable 11/25/20 05:33 Toxic Granulation Not Reportable 11/25/20 05:33 Toxic Vacuolation Not Reportable 11/25/20 05:33 Dohle Bodies Not Reportable 11/25/20 05:33 Pelger-Huet Anomaly Not Reportable 11/25/20 05:33 Martín Rods Not Reportable 11/25/20 05:33 Platelet Estimate Consistent w auto 11/25/20 05:33 Clumped Platelets Not Reportable 11/25/20 05:33 Plt Clumps, EDTA Not Reportable 11/25/20 05:33 Large Platelets Not Reportable 11/25/20 05:33 Giant Platelets Not Reportable 11/25/20 05:33 Platelet Satelliting Not Reportable 11/25/20 05:33 Plt Morphology Comment Not Reportable 11/25/20 05:33 RBC Morphology Not Reportable 11/25/20 05:33 Dimorphic RBCs Not Reportable 11/25/20 05:33 Polychromasia Not Reportable 11/25/20 05:33 Hypochromasia Not Reportable 11/25/20 05:33 Poikilocytosis Not Reportable 11/25/20 05:33 Anisocytosis 1+ 11/25/20 05:33 Microcytosis Not Reportable 11/25/20 05:33 Macrocytosis Not Reportable 11/25/20 05:33 Spherocytes Not Reportable 11/25/20 05:33 Pappenheimer Bodies Not Reportable 11/25/20 05:33 Sickle Cells Not Reportable 11/25/20 05:33 Target Cells Not Reportable 11/25/20 05:33 Tear Drop Cells Not Reportable 11/25/20 05:33 Ovalocytes Not Reportable 11/25/20 05:33 Helmet Cells Not Reportable 11/25/20 05:33 Lucas-[place] Bodies Not Reportable 11/25/20 05:33 [place] Rings Not Reportable 11/25/20 05:33 Cosmo Cells Not Reportable 11/25/20 05:33 Bite Cells Not Reportable 11/25/20 05:33 Crenated Cell Not Reportable 11/25/20 05:33 Elliptocytes Not Reportable 11/25/20 05:33 Acanthocytes (Spur) Not Reportable 11/25/20 05:33 Rouleaux Not Reportable 11/25/20 05:33 Hemoglobin C Crystals Not Reportable 11/25/20 05:33 Schistocytes Not Reportable 11/25/20 05:33 Malaria parasites Not Reportable 11/25/20 05:33 Carlton Bodies Not Reportable 11/25/20 05:33 Hem Pathologist Commnt No 11/25/20 05:33 PT 16.0 Sec. (12.2-14.9) H 11/23/20 21:40 INR 1.23 (0.87-1.13) H 11/23/20 21:40 VBG pH 7.474 (7.320-7.420) H 11/23/20 21:40 Sodium 136 mmol/L (137-145) L 11/25/20 05:33 Potassium 4.5 mmol/L (3.6-5.0) 11/25/20 05:33 Chloride 92.4 mmol/L (98-107) L 11/25/20 05:33 Carbon Dioxide 30 mmol/L (22-30) 11/25/20 05:33 Anion Gap 18 mmol/L 11/25/20 05:33 BUN 42 mg/dL (7-17) H 11/25/20 05:33 Creatinine 8.6 mg/dL (0.6-1.2) H 11/25/20 05:33 Estimated GFR 5 ml/min 11/25/20 05:33 BUN/Creatinine Ratio 5 % 11/25/20 05:33 Glucose 174 mg/dL (65-100) H 11/25/20 05:33 Lactic Acid 1.70 mmol/L (0.7-2.0) 11/24/20 01:01 Calcium 9.4 mg/dL (8.4-10.2) 11/25/20 05:33 Total Bilirubin 0.80 mg/dL (0.1-1.2) 11/23/20 21:40 AST 33 units/L (5-40) 11/23/20 21:40 ALT 14 units/L (7-56) 11/23/20 21:40 Alkaline Phosphatase 132 units/L (35-129) H 11/23/20 21:40 Total Protein 6.7 g/dL (6.3-8.2) 11/23/20 21:40 Albumin 3.8 g/dL (3.9-5) L 11/23/20 21:40 Albumin/Globulin Ratio 1.3 % 11/23/20 21:40 Coronavirus (PCR) Negative (Negative) 11/24/20 10:30 Hepatitis A IgM Ab Non-reactive (NonReactive) 11/24/20 12:18 Hep Bs Antigen Nonreactive (Negative) 11/24/20 12:18 Hep B Core IgM Ab Non-reactive (NonReactive) 11/24/20 12:18 Hepatitis C Antibody Non-reactive (NonReactive) 11/24/20 12:18 Microbiology: Microbiology 11/23/20 21:40 Peripheral/Venous Blood Culture - Preliminary NO GROWTH AFTER 24 HOURS 11/23/20 21:40 Peripheral/Venous Blood Culture - Preliminary NO GROWTH AFTER 24 HOURS Active Medications - Current Medications Current Medications: Generic Name Dose Route Start Last Admin Trade Name Freq PRN Reason Stop Dose Admin Acetaminophen 650 mg 11/24/20 18:04 11/24/20 21:55 Acetaminophen 325 Mg Tab PO 650 mg Q6H PRN Administration Pain, Mild (1-3) Famotidine 20 mg 11/25/20 10:00 11/25/20 10:39 Famotidine 20 Mg Tab PO 20 mg QDAY ZOE Administration Ceftriaxone Sodium 2 gm in 100 mls @ 200 mls/hr 11/24/20 10:00 11/25/20 10:40 Rocephin/Ns 2 Gm/100 Ml IV 11/28/20 11:59 200 mls/hr Q24H ZOE Administration Protocol Sodium Chloride 100 mls @ 999 mls/hr 11/24/20 11:40 Nacl 0.9% IV FRANK PRN Hypotension Azithromycin 500 mg in 250 mls @ 250 mls/hr 11/24/20 20:00 11/25/20 10:39 Zithromax/Ns IV 11/28/20 10:59 250 mls/hr Q24HR ZOE Administration Tramadol HCl 50 mg 11/24/20 19:10 Tramadol 50 Mg Tab PO Q6H PRN Pain, Moderate (4-6)
--- NOTE | 2020-11-25 13:33 | Electrocardiograph Report ---
[facility] Test Date: 2020-11-23 Test Time: 21:30:22 Pat Name: AUGUSTIN GRIFFIN Department: Room: A465 Gender: F Cone Machine Operator: : [id number] Requested By: ED DOC Order Number: [id number] Reading MD: Shayla Blanco Measurements Intervals [place] Rate: 121 P: 51 NV: 160 QRS: -33 QRSD: 100 T: 68 QT: 306 QTc: 434 Interpretive Statements Sinus tachycardia Left axis deviation No previous ECG available for comparison Electronically Signed On 11-25-2020 13:33:20 EDT by Shayla Blanco
[2020-11-26] MEDS: FAMOTIDINE 20 MG TAB PO SCH (09:30)
--- NOTE | 2020-11-26 09:48 | XRay Report ---
XR chest 1V ap INDICATION / CLINICAL INFORMATION: Follow-up right pneumonia. COMPARISON: 11/23/2020 FINDINGS: SUPPORT DEVICES: None HEART /PULMONARY VASCULATURE: Unchanged. LUNGS / PLEURA: Mild improvement in right upper lung airspace consolidation. No new or increasing air space consolidation. No pleural effusion. No pneumothorax. IMPRESSION: Mild improvement in right upper lung pneumonia. Signer Name: Anthony Givens MD Signed: 11/26/2020 9:44 AM Workstation Name: [id number]
[2020-11-26] MEDS: AZITHROMYCIN/NS 500 MG/250 ML 500 MG/250 ML BAG IV SCH (10:47)
[2020-11-26] MEDS: cefTRIAXone/NS 2 GM/100 ML 2 GM/100 ML BAG IV SCH (10:48)
[2020-11-26] MEDS ORDERED: SODIUM CHLORIDE 0.9% 100 ML IV PRN (11:00)
--- NOTE | 2020-11-26 15:08 | Progress Note ---
Assessment and Plan - Patient Problems (1) End-stage renal disease on hemodialysis Current Visit: Yes Status: Acute Plan to address problem: Cont HD on MWF schedule (2) Community acquired pneumonia Current Visit: Yes Status: Acute Plan to address problem: cont ABX treatment cetriaxone (3) Hypertensive chronic kidney disease with stage 5 chronic kidney disease or end stage renal disease Current Visit: Yes Status: Acute Plan to address problem: monitor BP off meds (4) Anemia in chronic illness Current Visit: Yes Status: Acute Plan to address problem: Hb at target. no further EPO needed. Subjective Date of service: 11/26/20 Principal diagnosis: ESRD Interval history: Pt awake, alert, in no acute distress Objective - Vital Signs Vital signs: Vital Signs - 12hr 11/26/20 11/26/20 11/26/20 04:15 08:57 08:59 Temperature 98.5 F 98.0 F Pulse Rate 104 H 95 H Respiratory 18 20 Rate Blood Pressure 103/53 184/63 124/57 O2 Sat by Pulse 95 92 Oximetry 11/26/20 11:31 Temperature 98.3 F Pulse Rate 90 Respiratory 20 Rate Blood Pressure 114/53 O2 Sat by Pulse 98 Oximetry - General Appearance General appearance: well-developed, well-nourished, appears stated age EENT: ATNC, PERRL, mucous membranes moist Neck: no JVD Respiratory: Present: Clear to Ascultation Cardiology: regular, S1S2 Gastrointestinal: normoactive bowel sounds Integumentary: no rash, other (no edema ) Neurologic: no focal deficit, alert and oriented x3, strength 5/5, CN 3-12 intact Psychiatric: mood/affect appropriate, cooperative - Lab 11/25/20 05:33 11/25/20 05:33 Most recent lab results Calcium 9.4 mg/dL (8.4-10.2) 11/25/20 05:33 Medications & Allergies - Medications Allergies/Adverse Reactions: Allergies No Known Allergies Allergy (Unverified 08/25/20 08:02) Home Medications: Home Medications Medication Instructions Recorded Confirmed Last Taken Type traMADoL [Ultram 50 MG tab] 50 mg PO Q6HR PRN #15 tablet 08/25/20 Unknown Rx Active Medications: Generic Name Dose Route Start Last Admin Trade Name Freq PRN Reason Stop Dose Admin Acetaminophen 650 mg 11/24/20 18:04 11/24/20 21:55 Acetaminophen 325 Mg Tab PO 650 mg Q6H PRN Administration Pain, Mild (1-3) Azithromycin 500 mg 11/27/20 10:00 Azithromycin 250 Mg Tab PO 11/28/20 10:01 QDAY ZOE Protocol Famotidine 20 mg 11/25/20 10:00 11/26/20 09:30 Famotidine 20 Mg Tab PO 20 mg QDAY ZOE Administration Ceftriaxone Sodium 2 gm in 100 mls @ 200 mls/hr 11/24/20 10:00 11/26/20 10:48 Rocephin/Ns 2 Gm/100 Ml IV 11/28/20 11:59 200 mls/hr Q24H ZOE Administration Protocol Sodium Chloride 100 mls @ 999 mls/hr 11/26/20 11:00 Nacl 0.9% IV FRANK PRN Hypotension Tramadol HCl 50 mg 11/24/20 19:10 Tramadol 50 Mg Tab PO Q6H PRN Pain, Moderate (4-6)
--- NOTE | 2020-11-26 15:43 | Progress Note ---
Assessment and Plan Assessment and plan: --COVID-19 test is negative -- Febrile illness; Current Visit: Yes Status: Acute Multifactorial, due to pneumonia, PUI Possible Covid, patient already vaccinated Antipyretics, blood cultures Supportive care --Right upper lobe pneumonia/community-acquired Current Visit: Yes Status: Acute Empiric antibiotics, Rocephin and Zithromax Blood cultures, sputum cultures Supportive care Consider aspiration pneumonia --end-stage renal disease on HD Current Visit: Yes Status: Chronic Nephrology consulted Hemodialysis per schedule --Mild hyponatremia; Current Visit: Yes Status: Acute probably secondary to fluid overload Hemodialysis per schedule --obesity; BMI 36.6 Current Visit: Yes Status: Acute Patient needs weight reduction --DVT prophylaxis Current Visit: Yes Status: Acute Heparin renal dose --Full CODE STATUS We will closely monitor the patient and adjust management as needed Plan of care reviewed with the patient and her nurse Follow nephrology consultation and recommendations Closely monitor the patient and adjust management as needed Brief history; 79-year-old obese female patient with significant past medical history of hypertension end-stage renal disease on hemodialysis was admitted through emergency room with fever cough and initial work-up is consistent with right upper lobe pneumonia and fluid overload, patient was received stat hemodialysis with significant improvement, started on empiric antibiotics Rocephin and Zithromax, with mild improvement of symptoms, COVID-19 test is negative 11/25/2020; COVID-19 test is negative Patient received hemodialysis yesterday with significant improvement of symptoms Receiving antibiotics for right-sided pneumonia We will get follow-up chest x-ray tomorrow morning 11/26/18 Patient feels slightly better, follow-up x-ray mild improvement of pneumonia Continue current IV antibiotics, oxygen titrate O2 sats to more than 90% Nephrology following, HD per schedule Recheck chest x-ray tomorrow, and if continues to improve Will DC tomorrow on oral antibiotics if stable History Interval history: I seen and examined the patient at the bedside Patient's chart and medications reviewed Patient feels slightly better still has some shortness of breath and productive cough No hematemesis Vital signs noted Hospitalist Physical - Constitutional Vitals: Temp Pulse Resp BP Pulse Ox 98.3 F 90 20 114/53 98 11/26/20 11:31 11/26/20 11:31 11/26/20 11:31 11/26/20 11:31 11/26/20 11:31 General appearance: Present: no acute distress, well-nourished, obese - EENT Eyes: Present: PERRL, EOM intact - Neck Neck: Present: supple, normal ROM - Respiratory Respiratory effort: normal Respiratory: right: rhonchi, bilateral: diminished, negative: rales, wheezing - Cardiovascular Rhythm: regular Heart Sounds: Present: S1 & S2 - Extremities Extremities: no ischemia, pulses intact - Abdominal General gastrointestinal: soft, non-tender, non-distended, normal bowel sounds - Integumentary Integumentary: Present: clear, warm - Psychiatric Psychiatric: appropriate mood/affect, cooperative - Neurologic Neurologic: CNII-XII intact, moves all extremities Results - Labs CBC & Chem 7: 11/25/20 05:33 11/25/20 05:33 Labs: Laboratory Last Values WBC 9.9 K/mm3 (4.5-11.0) 11/25/20 05:33 RBC 3.39 M/mm3 (3.65-5.03) L 11/25/20 05:33 Hgb 9.9 gm/dl (10.1-14.3) L 11/25/20 05:33 Hct 30.0 % (30.3-42.9) L 11/25/20 05:33 MCV 89 fl (79-97) 11/25/20 05:33 MCH 29 pg (28-32) 11/25/20 05:33 MCHC 33 % (30-34) 11/25/20 05:33 RDW 18.0 % (13.2-15.2) H 11/25/20 05:33 Plt Count 147 K/mm3 (140-440) 11/25/20 05:33 Nicholas % (Auto) Supervisor [employer] 11/25/20 05:33 Add Manual Diff Complete 11/25/20 05:33 Total Counted 100 11/25/20 05:33 Seg Neuts % (Manual) 80.0 % (40.0-70.0) H 11/25/20 05:33 Lymphocytes % (Manual) 11.0 % (13.4-35.0) L 11/25/20 05:33 Monocytes % (Manual) 9.0 % (0.0-7.3) H 11/25/20 05:33 Nucleated RBC % Not Reportable 11/25/20 05:33 Seg Neutrophils # Man 7.9 K/mm3 (1.8-7.7) H 11/25/20 05:33 Band Neutrophils # 0.0 K/mm3 11/25/20 05:33 Lymphocytes # (Manual) 1.1 K/mm3 (1.2-5.4) L 11/25/20 05:33 Abs React Lymphs (Man) 0.0 K/mm3 11/25/20 05:33 Monocytes # (Manual) 0.9 K/mm3 (0.0-0.8) H 11/25/20 05:33 Eosinophils # (Manual) 0.0 K/mm3 (0.0-0.4) 11/25/20 05:33 Basophils # (Manual) 0.0 K/mm3 (0.0-0.1) 11/25/20 05:33 Metamyelocytes # 0.0 K/mm3 11/25/20 05:33 Myelocytes # 0.0 K/mm3 11/25/20 05:33 Promyelocytes # 0.0 K/mm3 11/25/20 05:33 Blast Cells # 0.0 K/mm3 11/25/20 05:33 WBC Morphology Not Reportable 11/25/20 05:33 Hypersegmented Neuts Not Reportable 11/25/20 05:33 Hyposegmented Neuts Not Reportable 11/25/20 05:33 Hypogranular Neuts Not Reportable 11/25/20 05:33 Smudge Cells Not Reportable 11/25/20 05:33 Toxic Granulation Not Reportable 11/25/20 05:33 Toxic Vacuolation Not Reportable 11/25/20 05:33 Dohle Bodies Not Reportable 11/25/20 05:33 Pelger-Huet Anomaly Not Reportable 11/25/20 05:33 Martín Rods Not Reportable 11/25/20 05:33 Platelet Estimate Consistent w auto 11/25/20 05:33 Clumped Platelets Not Reportable 11/25/20 05:33 Plt Clumps, EDTA Not Reportable 11/25/20 05:33 Large Platelets Not Reportable 11/25/20 05:33 Giant Platelets Not Reportable 11/25/20 05:33 Platelet Satelliting Not Reportable 11/25/20 05:33 Plt Morphology Comment Not Reportable 11/25/20 05:33 RBC Morphology Not Reportable 11/25/20 05:33 Dimorphic RBCs Not Reportable 11/25/20 05:33 Polychromasia Not Reportable 11/25/20 05:33 Hypochromasia Not Reportable 11/25/20 05:33 Poikilocytosis Not Reportable 11/25/20 05:33 Anisocytosis 1+ 11/25/20 05:33 Microcytosis Not Reportable 11/25/20 05:33 Macrocytosis Not Reportable 11/25/20 05:33 Spherocytes Not Reportable 11/25/20 05:33 Pappenheimer Bodies Not Reportable 11/25/20 05:33 Sickle Cells Not Reportable 11/25/20 05:33 Target Cells Not Reportable 11/25/20 05:33 Tear Drop Cells Not Reportable 11/25/20 05:33 Ovalocytes Not Reportable 11/25/20 05:33 Helmet Cells Not Reportable 11/25/20 05:33 Lucas-[place] Bodies Not Reportable 11/25/20 05:33 [place] Rings Not Reportable 11/25/20 05:33 Cosmo Cells Not Reportable 11/25/20 05:33 Bite Cells Not Reportable 11/25/20 05:33 Crenated Cell Not Reportable 11/25/20 05:33 Elliptocytes Not Reportable 11/25/20 05:33 Acanthocytes (Spur) Not Reportable 11/25/20 05:33 Rouleaux Not Reportable 11/25/20 05:33 Hemoglobin C Crystals Not Reportable 11/25/20 05:33 Schistocytes Not Reportable 11/25/20 05:33 Malaria parasites Not Reportable 11/25/20 05:33 [place] Bodies Not Reportable 11/25/20 05:33 Hem Pathologist Commnt No 11/25/20 05:33 PT 16.0 Sec. (12.2-14.9) H 11/23/20 21:40 INR 1.23 (0.87-1.13) H 11/23/20 21:40 VBG pH 7.474 (7.320-7.420) H 11/23/20 21:40 Sodium 136 mmol/L (137-145) L 11/25/20 05:33 Potassium 4.5 mmol/L (3.6-5.0) 11/25/20 05:33 Chloride 92.4 mmol/L (98-107) L 11/25/20 05:33 Carbon Dioxide 30 mmol/L (22-30) 11/25/20 05:33 Anion Gap 18 mmol/L 11/25/20 05:33 BUN 42 mg/dL (7-17) H 11/25/20 05:33 Creatinine 8.6 mg/dL (0.6-1.2) H 11/25/20 05:33 Estimated GFR 5 ml/min 11/25/20 05:33 BUN/Creatinine Ratio 5 % 11/25/20 05:33 Glucose 174 mg/dL (65-100) H 11/25/20 05:33 POC Glucose 193 mg/dL (70-105) H 11/26/20 11:34 Lactic Acid 1.70 mmol/L (0.7-2.0) 11/24/20 01:01 Calcium 9.4 mg/dL (8.4-10.2) 11/25/20 05:33 Total Bilirubin 0.80 mg/dL (0.1-1.2) 11/23/20 21:40 AST 33 units/L (5-40) 11/23/20 21:40 ALT 14 units/L (7-56) 11/23/20 21:40 Alkaline Phosphatase 132 units/L (35-129) H 11/23/20 21:40 Total Protein 6.7 g/dL (6.3-8.2) 11/23/20 21:40 Albumin 3.8 g/dL (3.9-5) L 11/23/20 21:40 Albumin/Globulin Ratio 1.3 % 11/23/20 21:40 Coronavirus (PCR) Negative (Negative) 11/24/20 10:30 Hepatitis A IgM Ab Non-reactive (NonReactive) 11/24/20 12:18 Hep Bs Antigen Nonreactive (Negative) 11/24/20 12:18 Hep B Core IgM Ab Non-reactive (NonReactive) 11/24/20 12:18 Hepatitis C Antibody Non-reactive (NonReactive) 11/24/20 12:18 Microbiology: Microbiology 11/23/20 21:40 Peripheral/Venous Blood Culture - Preliminary NO GROWTH AFTER 48 HOURS 11/23/20 21:40 Peripheral/Venous Blood Culture - Preliminary NO GROWTH AFTER 48 HOURS Barron/IV: Voiding Method Bedside Commode Active Medications - Current Medications Current Medications: Generic Name Dose Route Start Last Admin Trade Name Freq PRN Reason Stop Dose Admin Acetaminophen 650 mg 11/24/20 18:04 11/24/20 21:55 Acetaminophen 325 Mg Tab PO 650 mg Q6H PRN Administration Pain, Mild (1-3) Azithromycin 500 mg 11/27/20 10:00 Azithromycin 250 Mg Tab PO 11/28/20 10:01 QDAY ZOE Protocol Famotidine 20 mg 11/25/20 10:00 11/26/20 09:30 Famotidine 20 Mg Tab PO 20 mg QDAY ZOE Administration Ceftriaxone Sodium 2 gm in 100 mls @ 200 mls/hr 11/24/20 10:00 11/26/20 10:48 Rocephin/Ns 2 Gm/100 Ml IV 11/28/20 11:59 200 mls/hr Q24H ZOE Administration Protocol Sodium Chloride 100 mls @ 999 mls/hr 11/26/20 11:00 Nacl 0.9% IV FRANK PRN Hypotension Tramadol HCl 50 mg 11/24/20 19:10 Tramadol 50 Mg Tab PO Q6H PRN Pain, Moderate (4-6)
[2020-11-27] MEDS: AZITHROMYCIN 250 MG TAB PO SCH (09:34)
[2020-11-27] MEDS: cefTRIAXone/NS 2 GM/100 ML 2 GM/100 ML BAG IV SCH (09:34)
[2020-11-27] MEDS: FAMOTIDINE 20 MG TAB PO SCH (09:34)
--- NOTE | 2020-11-27 10:40 | Progress Note ---
Assessment and Plan Assessment and plan: --COVID-19 test is negative -- Febrile illness; Current Visit: Yes Status: Acute Multifactorial, due to pneumonia, PUI Possible Covid, patient already vaccinated Antipyretics, blood cultures Supportive care --Right upper lobe pneumonia/community-acquired Current Visit: Yes Status: Acute Empiric antibiotics, Rocephin and Zithromax Blood cultures, sputum cultures Follow-up chest x-ray tomorrow --end-stage renal disease on HD Current Visit: Yes Status: Chronic Nephrology consulted Hemodialysis per schedule --Mild hyponatremia; improved Current Visit: Yes Status: Acute probably secondary to fluid overload Hemodialysis per schedule --obesity; BMI 36.6 Current Visit: Yes Status: Acute Patient needs weight reduction --DVT prophylaxis Current Visit: Yes Status: Acute Heparin renal dose --Full CODE STATUS We will closely monitor the patient and adjust management as needed Plan of care reviewed with the patient and her nurse Follow nephrology consultation and recommendations Closely monitor the patient and adjust management as needed Brief history; 79-year-old obese female patient with significant past medical history of hyper tension end-stage renal disease on hemodialysis was admitted through emergency room with fever cough and initial work-up is consistent with right upper lobe pneumonia and fluid overload, patient was received stat hemodialysis with significant improvement, started on empiric antibiotics Rocephin and Zithromax, with mild improvement of symptoms, COVID-19 test is negative 11/25/2020; COVID-19 test is negative Patient received hemodialysis yesterday with significant improvement of symptoms Receiving antibiotics for right-sided pneumonia We will get follow-up chest x-ray tomorrow morning 11/26/18 Patient feels slightly better, follow-up x-ray mild improvement of pneumonia Continue current IV antibiotics, oxygen titrate O2 sats to more than 90% Nephrology following, HD per schedule 11/27/2020 Patient feels slightly better day 4 of antibiotics Hemodialysis per schedule, will complete antibiotic course tomorrow And if stable will discharge home Follow-up chest x-ray tomorrow if stable will discharge home History Interval history: I have seen and examined the patient at the bedside Patient's chart and medications reviewed No new events reported by the nursing Follow-up chest x-ray mild improvement Mild shortness of breath and cough Vital signs reviewed Hospitalist Physical - Constitutional Vitals: Temp Pulse Resp BP Pulse Ox 97.9 F 92 H 20 88/49 92 11/27/20 07:46 11/27/20 07:46 11/27/20 07:46 11/27/20 07:46 11/27/20 07:46 General appearance: Present: no acute distress, well-nourished, obese - EENT Eyes: Present: PERRL, EOM intact - Neck Neck: Present: supple, normal ROM - Respiratory Respiratory effort: normal Respiratory: bilateral: diminished, negative: rales, rhonchi, wheezing - Cardiovascular Rhythm: regular Heart Sounds: Present: S1 & S2 - Extremities Extremities: no ischemia, No edema - Abdominal General gastrointestinal: soft, non-tender, non-distended, normal bowel sounds - Integumentary Integumentary: Present: clear, warm - Psychiatric Psychiatric: appropriate mood/affect, cooperative - Neurologic Neurologic: CNII-XII intact, moves all extremities Results - Labs CBC & Chem 7: 11/25/20 05:33 11/25/20 05:33 Labs: Laboratory Last Values WBC 9.9 K/mm3 (4.5-11.0) 11/25/20 05:33 RBC 3.39 M/mm3 (3.65-5.03) L 11/25/20 05:33 Hgb 9.9 gm/dl (10.1-14.3) L 11/25/20 05:33 Hct 30.0 % (30.3-42.9) L 11/25/20 05:33 MCV 89 fl (79-97) 11/25/20 05:33 MCH 29 pg (28-32) 11/25/20 05:33 MCHC 33 % (30-34) 11/25/20 05:33 RDW 18.0 % (13.2-15.2) H 11/25/20 05:33 Plt Count 147 K/mm3 (140-440) 11/25/20 05:33 Nance % (Auto) Hand Assembler For Puller Over 11/25/20 05:33 Add Manual Diff Complete 11/25/20 05:33 Total Counted 100 11/25/20 05:33 Seg Neuts % (Manual) 80.0 % (40.0-70.0) H 11/25/20 05:33 Lymphocytes % (Manual) 11.0 % (13.4-35.0) L 11/25/20 05:33 Monocytes % (Manual) 9.0 % (0.0-7.3) H 11/25/20 05:33 Nucleated RBC % Not Reportable 11/25/20 05:33 Seg Neutrophils # Man 7.9 K/mm3 (1.8-7.7) H 11/25/20 05:33 Band Neutrophils # 0.0 K/mm3 11/25/20 05:33 Lymphocytes # (Manual) 1.1 K/mm3 (1.2-5.4) L 11/25/20 05:33 Abs React Lymphs (Man) 0.0 K/mm3 11/25/20 05:33 Monocytes # (Manual) 0.9 K/mm3 (0.0-0.8) H 11/25/20 05:33 Eosinophils # (Manual) 0.0 K/mm3 (0.0-0.4) 11/25/20 05:33 Basophils # (Manual) 0.0 K/mm3 (0.0-0.1) 11/25/20 05:33 Metamyelocytes # 0.0 K/mm3 11/25/20 05:33 Myelocytes # 0.0 K/mm3 11/25/20 05:33 Promyelocytes # 0.0 K/mm3 11/25/20 05:33 Blast Cells # 0.0 K/mm3 11/25/20 05:33 WBC Morphology Not Reportable 11/25/20 05:33 Hypersegmented Neuts Not Reportable 11/25/20 05:33 Hyposegmented Neuts Not Reportable 11/25/20 05:33 Hypogranular Neuts Not Reportable 11/25/20 05:33 Smudge Cells Not Reportable 11/25/20 05:33 Toxic Granulation Not Reportable 11/25/20 05:33 Toxic Vacuolation Not Reportable 11/25/20 05:33 Dohle Bodies Not Reportable 11/25/20 05:33 Pelger-Huet Anomaly Not Reportable 11/25/20 05:33 Martín Rods Not Reportable 11/25/20 05:33 Platelet Estimate Consistent w auto 11/25/20 05:33 Clumped Platelets Not Reportable 11/25/20 05:33 Plt Clumps, EDTA Not Reportable 11/25/20 05:33 Large Platelets Not Reportable 11/25/20 05:33 Giant Platelets Not Reportable 11/25/20 05:33 Platelet Satelliting Not Reportable 11/25/20 05:33 Plt Morphology Comment Not Reportable 11/25/20 05:33 RBC Morphology Not Reportable 11/25/20 05:33 Dimorphic RBCs Not Reportable 11/25/20 05:33 Polychromasia Not Reportable 11/25/20 05:33 Hypochromasia Not Reportable 11/25/20 05:33 Poikilocytosis Not Reportable 11/25/20 05:33 Anisocytosis 1+ 11/25/20 05:33 Microcytosis Not Reportable 11/25/20 05:33 Macrocytosis Not Reportable 11/25/20 05:33 Spherocytes Not Reportable 11/25/20 05:33 Pappenheimer Bodies Not Reportable 11/25/20 05:33 Sickle Cells Not Reportable 11/25/20 05:33 Target Cells Not Reportable 11/25/20 05:33 Tear Drop Cells Not Reportable 11/25/20 05:33 Ovalocytes Not Reportable 11/25/20 05:33 Helmet Cells Not Reportable 11/25/20 05:33 Lucas-[place] Bodies Not Reportable 11/25/20 05:33 [place] Rings Not Reportable 11/25/20 05:33 [place] Cells Not Reportable 11/25/20 05:33 Bite Cells Not Reportable 11/25/20 05:33 Crenated Cell Not Reportable 11/25/20 05:33 Elliptocytes Not Reportable 11/25/20 05:33 Acanthocytes (Spur) Not Reportable 11/25/20 05:33 Rouleaux Not Reportable 11/25/20 05:33 Hemoglobin C Crystals Not Reportable 11/25/20 05:33 Schistocytes Not Reportable 11/25/20 05:33 Malaria parasites Not Reportable 11/25/20 05:33 [place] Bodies Not Reportable 11/25/20 05:33 Hem Pathologist Commnt No 11/25/20 05:33 PT 16.0 Sec. (12.2-14.9) H 11/23/20 21:40 INR 1.23 (0.87-1.13) H 11/23/20 21:40 VBG pH 7.474 (7.320-7.420) H 11/23/20 21:40 Sodium 136 mmol/L (137-145) L 11/25/20 05:33 Potassium 4.5 mmol/L (3.6-5.0) 11/25/20 05:33 Chloride 92.4 mmol/L (98-107) L 11/25/20 05:33 Carbon Dioxide 30 mmol/L (22-30) 11/25/20 05:33 Anion Gap 18 mmol/L 11/25/20 05:33 BUN 42 mg/dL (7-17) H 11/25/20 05:33 Creatinine 8.6 mg/dL (0.6-1.2) H 11/25/20 05:33 Estimated GFR 5 ml/min 11/25/20 05:33 BUN/Creatinine Ratio 5 % 11/25/20 05:33 Glucose 174 mg/dL (65-100) H 11/25/20 05:33 POC Glucose 152 mg/dL (70-105) H 11/26/20 16:52 Lactic Acid 1.70 mmol/L (0.7-2.0) 11/24/20 01:01 Calcium 9.4 mg/dL (8.4-10.2) 11/25/20 05:33 Total Bilirubin 0.80 mg/dL (0.1-1.2) 11/23/20 21:40 AST 33 units/L (5-40) 11/23/20 21:40 ALT 14 units/L (7-56) 11/23/20 21:40 Alkaline Phosphatase 132 units/L (35-129) H 11/23/20 21:40 Total Protein 6.7 g/dL (6.3-8.2) 11/23/20 21:40 Albumin 3.8 g/dL (3.9-5) L 11/23/20 21:40 Albumin/Globulin Ratio 1.3 % 11/23/20 21:40 Coronavirus (PCR) Negative (Negative) 11/24/20 10:30 Hepatitis A IgM Ab Non-reactive (NonReactive) 11/24/20 12:18 Hep Bs Antigen Nonreactive (Negative) 11/24/20 12:18 Hep B Core IgM Ab Non-reactive (NonReactive) 11/24/20 12:18 Hepatitis C Antibody Non-reactive (NonReactive) 11/24/20 12:18 Microbiology: Microbiology 11/23/20 21:40 Peripheral/Venous Blood Culture - Preliminary NO GROWTH AFTER 72 HOURS 11/23/20 21:40 Peripheral/Venous Blood Culture - Preliminary NO GROWTH AFTER 72 HOURS Barron/IV: Voiding Method Toilet Active Medications - Current Medications Current Medications: Generic Name Dose Route Start Last Admin Trade Name Freq PRN Reason Stop Dose Admin Acetaminophen 650 mg 11/24/20 18:04 11/24/20 21:55 Acetaminophen 325 Mg Tab PO 650 mg Q6H PRN Administration Pain, Mild (1-3) Azithromycin 500 mg 11/27/20 10:00 11/27/20 09:34 Azithromycin 250 Mg Tab PO 11/28/20 10:01 500 mg QDAY ZOE Administration Protocol Famotidine 20 mg 11/25/20 10:00 11/27/20 09:34 Famotidine 20 Mg Tab PO 20 mg QDAY ZOE Administration Ceftriaxone Sodium 2 gm in 100 mls @ 200 mls/hr 11/24/20 10:00 11/27/20 09:34 Rocephin/Ns 2 Gm/100 Ml IV 11/28/20 11:59 200 mls/hr Q24H ZOE Administration Protocol Sodium Chloride 100 mls @ 999 mls/hr 11/26/20 11:00 Nacl 0.9% IV FRANK PRN Hypotension Tramadol HCl 50 mg 11/24/20 19:10 11/26/20 22:11 Tramadol 50 Mg Tab PO 50 mg Q6H PRN Administration Pain, Moderate (4-6)
[2020-11-28 05:01] VITALS: BP 110/68
--- NOTE | 2020-11-28 08:13 | XRay Report ---
CHEST 1 VIEW INDICATION: f/u rt pneumonia. COMPARISON: 11/26/2020 FINDINGS: Support devices: None. Heart: Within normal limits. Lungs/Pleura: Right upper lobe infiltrate has decreased by 25%. The remainder of the lungs are clear. No pleural effusion or pneumothorax. Additional findings: None. IMPRESSION: Further improvement in the right upper lobe infiltrate. Signer Name: Norberto Morgan Jr, MD Signed: 11/28/2020 8:08 AM Workstation Name: [id number]
[2020-11-28] MEDS: cefTRIAXone/NS 2 GM/100 ML 2 GM/100 ML BAG IV SCH (09:50)
[2020-11-28] MEDS: AZITHROMYCIN 250 MG TAB PO SCH (09:50)
[2020-11-28] MEDS: FAMOTIDINE 20 MG TAB PO SCH (09:50)
--- NOTE | 2020-11-28 10:31 | Progress Note ---
Assessment and Plan - Patient Problems (1) End-stage renal disease on hemodialysis Current Visit: Yes Status: Acute Plan to address problem: Received back to back HD on Thu & Thu, resume HD on MWF schedule starting Thursday (2) Community acquired pneumonia Current Visit: Yes Status: Acute Plan to address problem: cont ABX treatment cetriaxone (3) Hypertensive chronic kidney disease with stage 5 chronic kidney disease or end stage renal disease Current Visit: Yes Status: Acute Plan to address problem: monitor BP off meds (4) Anemia in chronic illness Current Visit: Yes Status: Acute Plan to address problem: Hb at target. no further EPO needed. Subjective Date of service: 11/28/20 Principal diagnosis: ESRD Interval history: Pt awake, alert, in no acute distress. Received back to back HD on . Objective - Vital Signs Vital signs: Vital Signs - 12hr 11/27/20 11/28/20 11/28/20 23:14 05:00 09:00 Temperature 98.0 F 98.6 F Pulse Rate 91 H 84 Respiratory 18 Rate Blood Pressure 130/61 Blood Pressure 110/68 [Right] O2 Sat by Pulse 97 94 Oximetry - General Appearance General appearance: well-developed, well-nourished, appears stated age EENT: ATNC, PERRL, mucous membranes moist Neck: no JVD Respiratory: Present: Clear to Ascultation Cardiology: S1S2 Gastrointestinal: normoactive bowel sounds Integumentary: no rash Neurologic: no focal deficit, alert and oriented x3, strength 5/5, CN 3-12 intact Psychiatric: mood/affect appropriate, cooperative - Lab 11/25/20 05:33 11/25/20 05:33 Most recent lab results Calcium 9.4 mg/dL (8.4-10.2) 11/25/20 05:33 Medications & Allergies - Medications Allergies/Adverse Reactions: Allergies No Known Allergies Allergy (Unverified 08/25/20 08:02) Home Medications: Home Medications Medication Instructions Recorded Confirmed Last Taken Type traMADoL [Ultram 50 MG tab] 50 mg PO Q6HR PRN #15 tablet 08/25/20 Unknown Rx Active Medications: Generic Name Dose Route Start Last Admin Trade Name Freq PRN Reason Stop Dose Admin Acetaminophen 650 mg 11/24/20 18:04 11/24/20 21:55 Acetaminophen 325 Mg Tab PO 650 mg Q6H PRN Administration Pain, Mild (1-3) Famotidine 20 mg 11/25/20 10:00 11/28/20 09:50 Famotidine 20 Mg Tab PO 20 mg QDAY ZOE Administration Ceftriaxone Sodium 2 gm in 100 mls @ 200 mls/hr 11/24/20 10:00 11/28/20 09:50 Rocephin/Ns 2 Gm/100 Ml IV 11/28/20 11:59 200 mls/hr Q24H ZOE Administration Protocol Sodium Chloride 100 mls @ 999 mls/hr 11/26/20 11:00 Nacl 0.9% IV FRANK PRN Hypotension Tramadol HCl 50 mg 11/24/20 19:10 11/26/20 22:11 Tramadol 50 Mg Tab PO 50 mg Q6H PRN Administration Pain, Moderate (4-6)
--- NOTE | 2020-11-28 17:35 | Discharge Summary ---
Providers - Providers Date of Admission: 11/24/20 09:08 Date of discharge: 11/28/20 Attending physician: MICHAEL ANDERSON 11/24/20 09:30 Consult to Physician [CONS] Stat Comment: Consulting Provider: KOMAL NOVAK Physician Instructions: Reason For Exam: ESRD 11/24/20 19:21 Occupational Therapy Evaluate and Treat [CONS] Routine Comment: Reason For Exam: Recurrent falls/evaluate and treat/DC needs Physical Therapy Evaluation and Treat [CONS] Routine Comment: Reason For Exam: Recurrent falls/evaluate and treat/DC needs Primary care physician: TRIP RIDER Hospitalization Condition: Fair Disposition: [id number] HOME UNDER HOME HLTH Time spent for discharge: 35 min Exam - Constitutional Vitals: Temp Pulse Resp BP Pulse Ox 98.6 F 84 18 110/68 94 11/28/20 05:00 11/28/20 05:00 11/27/20 23:14 11/28/20 05:00 11/28/20 09:00 Plan Activity: advance as tolerated, fall precautions Diet: renal Additional Instructions: Follow renal/hemodialysis per schedule, Fall precautions. If you have worsening symptoms, contact MD or go to the nearest ER. Home health nurse, home PT and home OT is set up by the case management Follow up with: GLORIA ALBARRAN MD [Primary Care Provider] - 3-5 Days KOMAL NOVAK MD [Staff Physician] - 7 Days Prescriptions: Famotidine [Pepcid] 20 mg PO QDAY #30 tablet
--- NOTE | 2020-11-28 17:50 | Discharge Summary ---
Providers - Providers Date of Admission: 11/24/20 09:08 Date of discharge: 11/28/20 Attending physician: MICHAEL ANDERSON 11/24/20 09:30 Consult to Physician [CONS] Stat Comment: Consulting Provider: KOMAL NOVAK Physician Instructions: Reason For Exam: ESRD 11/24/20 19:21 Occupational Therapy Evaluate and Treat [CONS] Routine Comment: Reason For Exam: Recurrent falls/evaluate and treat/DC needs Physical Therapy Evaluation and Treat [CONS] Routine Comment: Reason For Exam: Recurrent falls/evaluate and treat/DC needs Primary care physician: BOAT PILOT Hospitalization Reason for admission: Worsening shortness of breath/fever and cough/missed dialysis Condition: Fair Pertinent studies: Multiple chest x-ray Procedures: Hemodialysis per schedule Hospital course: 79 yo female patient with hx of ESRD on HD MWF, hypertension presents to the emergency room with fever cough brown-yellow mucus production. Patient also gives history of recurrent falls , She has fever, chills, sore throat, headache, poor appetite diarrhea. She received 2 doses of the Covid vaccine in June and July. , Patient missed her dialysis yesterday as she was not feeling well. Initial work-up in the emergency room is consistent with, right upper lobe pneumonia on chest x-ray, mild leukocytosis, mild hyponatremia probably secondary to fluid overload. Patient was admitted: Test was negative, treated with empiric antibiotics for her community-acquired pneumonia, evaluated by nephrology Received hemodialysis per schedule, obtain serial x-rays, which showed improving pneumonia Today patient is comfortable no new complaints, denies shortness of breath or cough, vital signs reviewed Physical examination prior to discharge did not show any new changes Cleared by nephrology for discharge and follow-up hemodialysis per schedule PT OT evaluated the patient, recommended inpatient acute rehab, however patient refused, and case management set up Home health PT, home health OT, home health nurse. I discussed with patient's daughter Ms. Pulliam in detail her condition, discharge planning and recommendations of acute rehab She opted home PT home OT and home health services. Patient is stable at discharge Discharge diagnosis: --COVID-19 test is negative -- Febrile illness; Current Visit: Yes Status: Acute Multifactorial, due to pneumonia, PUI Possible Covid, patient already vaccinated Antipyretics, blood cultures Supportive care --Right upper lobe pneumonia/community-acquired Current Visit: Yes Status: Acute Empiric antibiotics, Rocephin and Zithromax Blood cultures, sputum cultures Follow-up chest x-ray tomorrow Not an aspiration pneumonia --end-stage renal disease on HD Current Visit: Yes Status: Chronic Nephrology consulted Hemodialysis per schedule --Mild hyponatremia; improved Current Visit: Yes Status: Acute probably secondary to fluid overload Hemodialysis per schedule --obesity; BMI 36.6 Current Visit: Yes Status: Acute Patient needs weight reduction --DVT prophylaxis Current Visit: Yes Status: Acute Heparin renal dose --Full CODE STATUS Patient is stable at discharge Disposition: [id number] HOME UNDER HOME HL Final Discharge Diagnosis (Prints w/discharge instructions): Covid test is negative. Febrile illness due to pneumonia. Right upper lobe community- acquired pneumonia. End-stage renal disease. On hemodialysis. Hyponatremia improved. Obesity BMI 36.6 Time spent for discharge: 30 min Core Measure Documentation - Palliative Care Palliative Care/ Comfort Measures: Not Applicable - Core Measures Any of the following diagnoses?: none Exam - Constitutional Vitals: Temp Pulse Resp BP Pulse Ox 98.6 F 84 18 110/68 94 11/28/20 05:00 11/28/20 05:00 11/27/20 23:14 11/28/20 05:00 11/28/20 09:00 General appearance: Present: no acute distress, well-nourished - EENT Eyes: Present: PERRL, EOM intact - Neck Neck: Present: supple, normal ROM - Respiratory Respiratory effort: normal Respiratory: bilateral: diminished, negative: rales, rhonchi, wheezing - Cardiovascular Rhythm: regular Heart Sounds: Present: S1 & S2 - Extremities Extremities: no ischemia, No edema - Abdominal General gastrointestinal: Present: soft, non-tender, non-distended, normal bowel sounds - Integumentary Integumentary: Present: clear, warm - Musculoskeletal Musculoskeletal: strength equal bilaterally, generalized weakness - Psychiatric Psychiatric: appropriate mood/affect, cooperative - Neurologic Neurologic: moves all extremities Plan Activity: advance as tolerated, fall precautions Diet: renal Special Instructions: physical therapy (Home health physical therapy), occupational therapy (Home health occupational) Additional Instructions: Follow renal/hemodialysis per schedule, Fall precautions. If you have worsening symptoms, contact MD or go to the nearest ER. Home health nurse, home PT and home OT is set up by the case management Follow up with: KOMAL NOVAK MD [Staff Physician] - 7 Days PRIMARY CARE, [Primary Care Provider] - 3-5 Days Prescriptions: Famotidine [Pepcid] 20 mg PO QDAY #30 tablet
== END 2020-11-28 18:34 | disposition home health service (06) | DRG 871 ==
LOC: ED 21:11 → 3A 11-24 09:08 → 4A 11-25 12:08
PROVIDERS: ADMIT Internal Medicine; ATTEND Internal Medicine
PROC: 5A1D70Z Performance of Urinary Filtration, Intermittent, Less than 6 Hours Per Day (ICD-10-PCS; principal; 2020-11-24)
PROC: 5A1D70Z Performance of Urinary Filtration, Intermittent, Less than 6 Hours Per Day (ICD-10-PCS; 2020-11-26)
PROC: 5A1D70Z Performance of Urinary Filtration, Intermittent, Less than 6 Hours Per Day (ICD-10-PCS; 2020-11-27)
DX: A41.9 Sepsis, unspecified organism (principal); J18.9 Pneumonia, unspecified organism; N18.6 End stage renal disease; J96.01 Acute respiratory failure with hypoxia; E87.1 Hypo-osmolality and hyponatremia; I12.0 Hypertensive chronic kidney disease with stage 5 chronic kidney disease or end stage renal disease; E66.9 Obesity, unspecified; D72.829 Elevated white blood cell count, unspecified; D50.0 Iron deficiency anemia secondary to blood loss (chronic); E87.70 Fluid overload, unspecified; Z20.822 Contact with and (suspected) exposure to COVID-19; Z68.36 Body mass index [BMI] 36.0-36.9, adult; Z99.2 Dependence on renal dialysis; Z90.710 Acquired absence of both cervix and uterus; Z82.49 Family history of ischemic heart disease and other diseases of the circulatory system
CPT/HCPCS: 36415; 71045; 80048; 80053; 80074; 82140; 82805; 82962; 85007; 85025; 85610; 87040; 93005; 96374; G0378; J0456; J0696; U0003